=== PATIENT | female | born 1995 | race Caucasian/White ===

== ENCOUNTER 2021-03-08 05:38 | Emergency (ER) | payer MEDICAID ==
[~2021-03-08] VITALS: Ht 149.9 cm; Wt 92.6 kg
[2021-03-08 06:05] VITALS: BP 149/70
[2021-03-08 06:10] VITALS: BP 149/70
--- NOTE | 2021-03-08 06:12 | NUR ---
SWAB SENT TO LAB COVID
--- NOTE | 2021-03-08 06:13 | NUR ---
PT TAKEN TO TENT 3
--- NOTE | 2021-03-08 06:22 | NUR ---
Patient discharged with v/s stable. Written and verbal after care instructions given and explained. Patient verbalized understanding. Ambulatory with steady gait. All questions addressed prior to discharge. Advised to follow up with PMD.
== END 2021-03-08 06:22 | disposition home or self-care (01) ==
LOC: MED 05:38
DX: B34.9 Viral infection, unspecified (principal); Z20.822 Contact with and (suspected) exposure to COVID-19
CPT/HCPCS: 99283; U0003